=== PATIENT | female | born 1980 | race Two or more races ===

== ENCOUNTER 2023-05-04 00:39 | Outpatient (CLI) | payer OTHER ==
[2023-05-04] MEDS ORDERED: ECOTRIN81 MG PO (01:52)
[2023-05-04] MEDS ORDERED: PRENATAL TABLE1 EAC1 PO (01:52)
[2023-05-04] MEDS ORDERED: MAXFE CAPLET1 EAC1 PO (01:53)
== END 2023-05-04 10:39 | disposition home or self-care (01) ==
LOC: OBS/DEL 00:39
PROVIDERS: ATTEND Obstetrics & Gynecology
DX: O21.2 Late vomiting of pregnancy (principal); Z3A.35 35 weeks gestation of pregnancy

== ENCOUNTER 2023-05-17 15:55 | Outpatient (CLI) | payer OTHER ==
[~2023-05-17 15:55] MED LIST: ECOTRIN81 MG PO; MAXFE CAPLET1 EAC1 PO; PRENATAL TABLE1 EAC1 PO
== END 2023-05-17 17:15 | disposition home or self-care (01) ==
LOC: NST 15:55
PROVIDERS: ATTEND Obstetrics & Gynecology
DX: Z34.83 Encounter for supervision of other normal pregnancy, third trimester (principal)

== ENCOUNTER 2023-05-18 14:41 | Outpatient (CLI) | payer OTHER | END 2023-05-18 15:37 | disposition home or self-care (01) | LOC: NST 14:41 | PROVIDERS: ATTEND Obstetrics & Gynecology | DX: Z34.83 Encounter for supervision of other normal pregnancy, third trimester (principal) ==

== ENCOUNTER 2023-05-25 10:47 | Inpatient (IN) | payer OTHER ==
[~2023-05-25] VITALS: Ht 162.6 cm; Wt 122.9 kg
[2023-05-31] MEDS ORDERED: PROGESTERONE200 MG (09:45)
== END 2023-06-03 13:11 | disposition home or self-care (01) | DRG 785 ==
LOC: O/R 05-31 06:55 → OB/GYN 05-31 06:55 → O/R 05-31 11:10 → OB/GYN 05-31 11:30
PROVIDERS: ADMIT Obstetrics & Gynecology; ATTEND Obstetrics & Gynecology
PROC: 0UB70ZZ Excision of Bilateral Fallopian Tubes, Open Approach (ICD-10-PCS; 2023-05-31)
PROC: 0UB90ZZ Excision of Uterus, Open Approach (ICD-10-PCS; 2023-05-31)
PROC: 4A1HXCZ Monitoring of Products of Conception, Cardiac Rate, External Approach (ICD-10-PCS; 2023-05-31)
PROC: 10D00Z1 Extraction of Products of Conception, Low, Open Approach (ICD-10-PCS; principal; 2023-05-31 11:30)
DX: O34.211 Maternal care for low transverse scar from previous cesarean delivery (principal); O34.13 Maternal care for benign tumor of corpus uteri, third trimester; O36.63X0 Maternal care for excessive fetal growth, third trimester, not applicable or unspecified; D25.9 Leiomyoma of uterus, unspecified; Z30.2 Encounter for sterilization; Z3A.39 39 weeks gestation of pregnancy; Z37.0 Single live birth; Z20.822 Contact with and (suspected) exposure to COVID-19